=== PATIENT | male | born 1960 | race Caucasian/White ===

== ENCOUNTER 2025-02-13 10:30 | Inpatient (IN) | payer MEDICARE, SELFPAY ==
[2025-02-12] VITALS (7 sets, daily range): BP systolic 129–170; BP diastolic 83–109; BMI 33.8
[2025-02-12 12:34] LABS: % Basophils 0.5 % (0-2); % Eosinophils 0.5 % (0-6); % Immature Granulocytes 0.1 % (0-0.5); % Lymphocytes 15.2 % (20.5-51.1); % Monocytes 6.6 % (1.7-9.3); % Neutrophils 77.1 % (42.2-75.2); Absolute Lymphocytes 1.1 10^3/uL (1.2-3.4); Absolute Monocytes 0.5 10^3/uL (0.1-0.6); Absolute Neutrophils 5.7 10^3/uL (1.4-6.5); Hematocrit 45.6 % (37.0-47.0); Hemoglobin 16.4 g/dL (12.0-16.0); Mean Corpuscular Hgb 30.4 pg (27.0-31.0); Mean Corpuscular Volume 84.6 fL (81.0-99.0); Mean Platelet Volume 10.2 fL (7.4-10.4); Nucleated Red Blood Cells % 0 %; Platelet Count 141 10^3/uL (130-400); Red Blood Cell Count 5.39 10^6/uL (4.20-5.40); Red Cell Dist. Width 13.1 % (11.5-14.5); White Blood Cell Count 7.5 10^3/uL (4.8-10.8)
[2025-02-12 12:47] LABS: ALT (SGPT) 34 U/L (0-35); AST (SGOT) 41 U/L (14-36); Albumin 4.2 g/dl (3.5-5.0); Alkaline Phosphatase 73 U/L (38-126); Blood Urea Nitrogen 13 mg/dl (7-17); Calcium 9.9 mg/dl (8.4-10.2); Carbon Dioxide 27 mmol/L (22-30); Chloride 107 mmol/L (98-107); Glucose 118 mg/dl (70-99); Lipase 138 U/L (23-300); Potassium 4.3 mmol/L (3.5-5.1); Sodium 140 mmol/L (135-145); Total Bilirubin 1.5 mg/dl (0.2-1.3); eGFR > 60.00
--- NOTE | 2025-02-12 16:57 | ED.GENMED ---
History of Present Illness
General
Chief Complaint: Rectal Bleeding
Source: patient
Exam Limitations: none
Time Seen by Provider: 02/12/25 15:56
Nursing documentation reviewed up to this point in time: agreed with
History of Present Illness
History of Present Illness:
64 y/o M with h/o HTN, HLD
sleeve gastrectomy
hernia repair in the past
here with rectal bleeding
went out for pizza and beer last night
about an hour later started having nausea/dry heaves, crampy abd pain and then feeling of needing to have BM
had some diarrhea initially brown/soft
then overnight he was up to the bathroom many times with crampy pain and needing to move bowels with nausea
he ended up just transitioning to only blood; a tablespoon or so each time
and then today has had larger volume, several tablespoons
had 2 episodes in the waiting room
pain comes in waves, generally central abdomen
no vomiting
no varices history
drinks alcohol a few times a week
Past History
Past History
ED Past Medical History: HTN and Hypercholesterolemia
ED Past Surgical History: Other (sleeve gastrectomy)
Social History
Tobacco: Non-smoker
Review of Systems
Review of Systems
Allergies reviewed?: Yes
All Other Systems: Not applicable
Phy Exam
Physical Exam
Physical Exam:
GENERAL: Alert , in no apparent distress looks well
EYE: pupils equal and reactive
NECK: Supple
ENT: o/p clr, mmm.
CARDIAC: Regular rate and rhythm .
LUNGS: Clear breath sounds bilaterally, no acute respiratory distress, no wheezes/rales/rhonchi
ABDOMEN: Soft, mild diffuse tenderness, no r/g, no cvat, normal bowel sounds
Heme positive minimal pink in the vault, no hemorrhoids,
NEUROLOGICAL: Alert and oriented, no focal neuro deficits
SKIN: Warm and dry, skin intact.
MUSCULOSKELETAL: No edema, well perfused. neg billy's sign
PSYCH: Normal and appropriate interaction.
Course
Orders/Labs/Results
Orders:
Orders
02/12/25 12:15
Complete Blood Count/With Diff Urgent
Comprehensive Metabolic Panel Urgent
Lipase Urgent
02/12/25 16:58
CT Abd/Pel (IV only)-DH only Urgent
Comment:
Reason For Exam: rectal bleeding, BRBPR, abd pain; ? colitis
C DIFF [C difficile Antigen & Toxins] Urgent
MARANDA Source: Feces/Stool
Specimen Description:
Giardia/Cryptosporidium Ag Urgent
MARANDA Source: Feces/Stool
Specimen Description:
Stool Culture Urgent
MARANDA Source: Feces/Stool
Specimen Description:
0.9% Sodium Chloride 1000 ml [Nss] 1,000 ml IV BOLUS
02/12/25 17:15
Lactic Acid Urgent
02/12/25 18:47
HYDROmorphone [Dilaudid] 1 mg IV NOW STA
02/12/25 18:53
Ondansetron Injectable [Zofran] 4 mg .ROUTE .STK-MED ONE
02/12/25 18:58
Ondansetron Injectable [Zofran] 4 mg IV NOW STA
02/12/25 19:47
Lactic Acid Urgent
02/12/25 20:54
Electrocardiogram (*1) Urgent
Reason for Study: Abdominal Pain
EKG- Treatment ONCE
Abnormal Lab Results
02/12/25 02/12/25
12:15 17:15
Hgb 16.4 H g/dL
(12.0-16.0)
Absolute Lymphs (auto) 1.1 L 10^3/uL
(1.2-3.4)
Neutrophils % 77.1 H %
(42.2-75.2)
Lymphocytes % 15.2 L %
(20.5-51.1)
Glucose 118 H mg/dl
(70-99)
Lactic Acid 2.3 H mmol/L
(0.7-2.0)
Total Bilirubin 1.5 H mg/dl
(0.2-1.3)
AST 41 H U/L
(14-36)
02/12/25 12:15
02/12/25 12:15
Vital Signs
Initial and Last Documented VS:
Initial Vital Signs
Temp Pulse Resp BP Pulse Ox
36.8 C 86 16 149/103 97
02/12/25 12:06 02/12/25 12:06 02/12/25 12:06 02/12/25 12:06 02/12/25 12:06
Last Documented Vital Signs
Temp Pulse Resp BP Pulse Ox
36.6 C 64 18 170/109 95
02/12/25 18:32 02/12/25 20:09 02/12/25 15:28 02/12/25 20:09 02/12/25 20:09
MDM/Problems Addressed
MDM/Problems Addressed:
barbara jacinto
64 y/o M
htn, hld
gets colonoscopies every [address] [facility], polyps but nothing otherwise
last night ate pizza and had 2 beers, 1 hour later dry heaves, abdominal cramping and a little diarrhea
he was in and out of the bathroom all night frequently with these episodes but quickly rather than having diarrhea/stool he had straight red blood; initially a teaspoon , but then tablespoon, then a few tablespoons; largest was maybe 5 tablespoons
cramps were pretty intense at times
no thinners
afebrile, mildly hypertensive 150/100, moderate diffuse abd tenderness;
rectal exam no hemorrhoids appreciated; trace pink int he vault, heme pos; had 2 episodes in the [facility] but none in the room
lactate initially 2.3, wbc 7.5, hg 16.4, bun normal
lactate down to 0.9 after IVF
pain controlled with 1 dose dilaudid
[address] shows mild acute colitis in the prox to mid descending colon
he wasn't able to give me a sample to send
not sure if this is contributory but his GF's cat had giardia, tested pos at the vet last week
concern for ischemic colitis given all of these symptoms and findings
d/w dr. mares from GI who agrees, possible ischemic colitis
agree with obs overnight
TT to dr palomo covering colorectal surgery
pain controlled
will check EKG.
*Critical Care Note
Total Time (30-74mins, 75-104mins- exclusive of procedures): Not Applicable
ED Attending Note
-
Portions of this chart may have been created with voice recognition software.� Occasional wrong word or��sound alike� substitutions may have occurred due to the inherent limitations of voice recognition software.
Discharge Plan
Departure
Patient Disposition: Admit
Date of Disposition: 02/12/25
Time of Disposition: 20:00
Admit to: Med/Surg
Presentation/result/management discussed w/ accepting MD/DO: Hospitalist
Condition: Fair
Covid-19: Not Applicable
Discharge Problem:
Colitis, Rectal bleed
Prescriptions:
No Action
metoprolol succinate 50 mg Tablet Extended Release 24 Hr
50 mg PO DAILY
zolpidem 5 mg Tablet
5 mg PO DAILY
rosuvastatin 20 mg Tablet
20 mg PO DAILY
Enbrel 50 mg/mL (1 mL) Syringe
50 mg SC QWEEK
Rx Instructions:
Every Friday
valsartan-hydrochlorothiazide 320-25 mg Tablet
1 tab PO DAILY
Referrals:
TERESA OLIVA MD [Family Provider] -
Interventions
Interventions:
*Risk Screen - Suicide Last Done: 02/12/25 12:10
*General Assessment Last Done: 02/12/25 16:09
*Neglect/Abuse Screening Last Done: 02/12/25 12:10
*ED- Fall Risk Assessment Last Done: 02/12/25 16:09
*ED COVID-19 Vaccine History Last Done: 02/12/25 16:09
TH-Fuekrw-Klcqbepvzt Assessment Last Done: 02/12/25 16:16
ED- Cardiac Assessment Last Done: 02/12/25 16:30
ED- Pulmonary Assessment Last Done: 02/12/25 16:30
Discharge Date and Time
Print Language: GAMBIAN
[2025-02-12] MEDS: NSS 1000 IV (17:15)
[2025-02-12 17:37] LABS: Lactic Acid 2.3 mmol/L (0.7-2.0)
[2025-02-12] MEDS: ZOFRAN 4 MG IV (18:58)
[2025-02-12] MEDS: DILAUDID 1 MG IV (18:58)
[2025-02-12 20:10] LABS: Lactic Acid 0.9 mmol/L (0.7-2.0)
--- NOTE | 2025-02-12 22:39 | HPS.HSE ---
Addendum entered and electronically signed by Anand Campos DO 02/13/25 00:54:
Patient seen and examined independently. Agree with findings and plan as set forth by MARTIN Bourgeois.
Patient is a 64y M with PMH significant for hypertension and obesity s/p gastric sleeve who presents to ED complaining of abrupt onset of crampy abdominal pain with diarrhea last PM. Patient states that he went out for pizza and beer last PM.
No other members of his group developed similar symptoms. Patient states that he had crampy lower abdominal pain and multiple episodes of loose stools starting last PM. he had nausea and retching last PM - but no actual emesis. HToday his
diarrhea became bloody stool and then transitioned to blood alone. He states that his last bowel movement / passage of blood was around 1 PM today.
He is currently resting comfortably in the ED in no acute distress.
Ass:
Descending Colitis
Rheumatoid Arthritis
Benign Hypertension
Plan:
Admit for further evaluation and treatment.
Check stool studies.
Empiric abx with Zosyn for now.
GI evaluation for additional recommendations.
Supportive care with pain control, IVFs, etc.
Follow for clinical improvement.
Original Note:
Family Physician
-
Family Physician: TERESA OLIVA MD
Chief Complaint
-
bloody bowels
History of Present Illness
64 y/o M with h/o HTN, HLD,sleeve gastrectomy, hernia repair in the past presented with rectal bleeding. patient went out for pizza and beer last night about an hour later started having nausea/dry heaves,waves of abdominal pain. he had diarrhea
followed by only blood thought the night. his abdominal pain persisted. denied vomiting. his large blood BM was around 3Pm. denied fever, chills, chest pain, sob.denied dysuria or hematuria.
CT with the impression of colitis. patient received dose of Dilaudid, normal saline and Zofran in ER. admitting for further management. stool for c diff, culture, Giardia/cryposporidum sent from ER.
Medical History
Past Medical History
Past Medical History: Reports Other
Additional Past Medical History:
HTN
HLD
RA
Past Surgical History: Reports Other
Additional Past Surgical History:
sleeve gastrectomy
hernia repair
epididymal cyst removed
Social History
Tobacco: Non-smoker
Alcohol: Occasional
Drug: None
Personal: Partner
Living: With Family
Employment: Retired
Family History
Family History: Not pertinent
Allergies / Home Medications
Allergies reflects when Allergies were last updated in [facility].
Home Medications with original date entered in [facility]
Allergy/Medication List:
Allergies
Allergy/AdvReac Type Severity Reaction Status Date / Time
No Known Allergies Allergy Verified 02/12/25 16:08
Home Medications
etanercept 50 mg/mL (1 mL) subcutaneous syringe (Enbrel) 50 mg SC QWEEK 02/12/25
metoprolol succinate 50 mg tablet,extended release 24 hr 50 mg PO DAILY 02/12/25
rosuvastatin 20 mg tablet 20 mg PO DAILY 02/12/25
valsartan 320 mg-hydrochlorothiazide 25 mg tablet 1 tab PO DAILY 02/12/25
zolpidem 5 mg tablet 5 mg PO DAILY 02/12/25
Review of Systems
-
Constitutional: Reports No Symptoms
EENT: Reports No Symptoms
Respiratory: Reports No Symptoms
Cardiac: Reports No Symptoms
Abdomen/GI: Reports Abdominal Pain, Nausea and Bloody Stools
: Reports No Symptoms
Musculoskeletal: Reports No Symptoms
Skin: Reports No Symptoms
Neurological: Reports No Symptoms
Endocrine: Reports No Symptoms
Hematologic/Lymphatic: Reports No Symptoms
Psych: Reports No Symptoms
Physical Exam
Vital Signs
Vital Signs
Temp Pulse Resp BP Pulse Ox
97.9 F 64 18 145/97 95
02/12/25 18:32 02/12/25 20:09 02/12/25 15:28 02/12/25 21:00 02/12/25 21:15
Physical Exam
General: Well Developed, Well Nourished and No Apparent Distress
HEENT: NormoCephalic, Moist mucous membranes and Atraumatic
Respiratory: Clear
Cardiac: S1/S2 and Regular Rhythm; No Murmur or Rub
GI: Soft, Non Tender, Non Distended and Normal Bowel Sounds; No Organomegaly
Rectal: Deferred by Provider
Musculoskeletal: No Clubbing, No Cyanosis and No Edema
Skin: No Rash
Neuro: AO x 3 and Nonfocal/grossly intact
Psych: Calm
Laboratory Results
-
02/12/25 12:15
02/12/25 12:15
Laboratory Results
Lactic Acid 0.9 mmol/L (0.7-2.0) 02/12/25 19:47
Total Bilirubin 1.5 mg/dl (0.2-1.3) H 02/12/25 12:15
AST 41 U/L (14-36) H 02/12/25 12:15
ALT 34 U/L (0-35) 02/12/25 12:15
Alkaline Phosphatase 73 U/L (38-126) 02/12/25 12:15
Lipase 138 U/L (23-300) 02/12/25 12:15
Data Reviewed
-
CT Scan: Report Reviewed by me
Lab Data: Labs Reviewed by me
Impression/Plan
-
#abdominal pain, diarrhea, nausea likely from infectious colitis
-CT abdomen pelvis with acute uncomplicated colitis of the proximal to mid descending colon, likely of infectious/inflammatory etiology.
-NPo
-Zofran prn for n/v
-Dilaudid prn for pain
-Zosyn continued
-lactic trending down
-GI and colorectal consulted
#RA
-on Enbrel as outpatient
#HTN
-metoprolol continued with hold parameter
-valsartan continued
-hold hctz
#HLD
-statin continued
#insomnia
-Ambien continued
#DVT prophylaxis
-scd
#CODE status
-full code
[2025-02-12] MEDS: ZOSYN 50 IV (23:58)
[2025-02-13 01:02] VITALS: BP 165/85; BMI 33.2
[2025-02-13] MEDS: TYLENOL 650 MG PO (02:36)
[2025-02-13] MEDS: NSS 1000 IV (02:37)
[2025-02-13] MEDS: ZOSYN 50 IV (05:50)
[2025-02-13] MEDS: DILAUDID 0.5 MG IV (05:56)
--- NOTE | 2025-02-13 06:06 | PTCARENOTE ---
Input/output for patient is zero because patient reported having nothing to drink upon arrival and zero instances of voiding.
[2025-02-13 06:16] LABS: Hematocrit 42.8 % (39.0-52.0); Hemoglobin 14.6 g/dL (13.0-18.0); Mean Corp Hgb Conc. 34.1 g/dL (33.0-37.0); Mean Corpuscular Hgb 29.7 pg (27.0-31.0); Mean Corpuscular Volume 87.2 fL (80.0-94.0); Mean Platelet Volume 10.1 fL (7.4-10.4); Platelet Count 132 10^3/uL (130-400); Red Blood Cell Count 4.91 10^6/uL (4.70-6.10); Red Cell Dist. Width 13.2 % (11.5-14.5); White Blood Cell Count 5.3 10^3/uL (4.8-10.8)
--- NOTE | 2025-02-13 06:48 | W.PN.HOSP.TC ---
Today's Communication/Plan
-
discharge
Assessment / Plan
Assessment / Plan
Physical Exam
General: no acute distress, appears comfortable
HEENT: NormoCephalic, Moist mucous membranes and Atraumatic
Respiratory: Clear
Cardiac: S1/S2 and Regular Rhythm; No Murmur or Rub
GI: Soft, Non Tender, Non Distended and Normal Bowel Sounds; No Organomegaly
Musculoskeletal: No Clubbing, No Cyanosis and No Edema
Skin: No Rash
Neuro: AO x 3 conversant coherent
Psych: Calm
64M HTN HLD Sleeve Gastrectomy Hernia Repair p/w abd pain rectal bleeding found to have colitis likely ischemic possibly infectious
#abdominal pain, diarrhea, nausea likely from colitis
-CT abdomen pelvis with acute uncomplicated colitis of the proximal to mid descending colon, likely of infectious/inflammatory etiology.
-symptoms since improved. diet advanced to low residue, tolerating
-Zofran prn for n/v
-Dilaudid prn for pain
-Zosyn switched to Augmentin to complete total 7 day course abx
-mild lactic acidosis resolved
-GI and colorectal consults appreciated Medically stable for discharge
#RA
-on Enbrel as outpatient
#HTN
-metoprolol continued with hold parameter
-valsartan continued
-hctz ok to resume on discharge
#HLD
-statin continued
#insomnia
-Ambien continued
#DVT prophylaxis
-scd
#CODE status
-full code
Medically stable for discharge home with outpatient follow up recommendations.
Total Time Preparing Discharge ___40____ minutes including examination of the patient, summary of the hospital stay, instructions for continuing care to all relevant caregivers; and preparation of discharge records, prescriptions, and referral
forms if necessary.
Anticipated Discharge: Today
Subjective/Interval History
-
Date of Service: February 13, 2025
Seen and examined at bedside in no acute distress sitting up comfortable in bed reports feeling well. tolerating diet .
Objective Data
-
Labs:
Laboratory Results
02/13/25
04:45
WBC 5.3
Hgb 14.6
Hct 42.8
Plt Count 132
Vital Signs:
Vital Signs
Temp Pulse Resp BP Pulse Ox
97.8 F 60 20 165/85 93
02/13/25 01:02 02/13/25 01:02 02/13/25 01:02 02/13/25 01:02 02/12/25 23:45
I&O
02/11/25 02/12/25 02/13/25
06:59 06:59 06:59
Intake Total 0 / 0
Balance 0 / 0
[2025-02-13 07:56] VITALS: BP 147/90
[2025-02-13] MEDS: TOPROL XL 50 MG PO (08:32)
[2025-02-13] MEDS: CRESTOR 20 MG PO (08:32)
[2025-02-13] MEDS: DIOVAN 320 MG PO (08:32)
--- NOTE | 2025-02-13 10:03 | CON.GI ---
Consultation
-
Date/Time Consultation Requested: 02/12/25
Date/Time Consultation Performed: 02/13/25
Requesting Provider: Jeana Tafoya
Performing Provider: Sonia Ling
Reason for Consultation: Rectal bleeding, colitis
Medical History
Chief Complaint / HPI
Chief Complaint: Abdominal pain, rectal bleeding
History of Present Illness:
Enmanuel Leon is a 64 y.o. male w/ pmhx HTN, obesity s/p gastric sleeve and hx of gastric polyps who presents after episodes of severe abdominal cramping followed by multiple episodes of small volume hematochezia. He reports going out to eat,
having pizza and a beer. Soon after, he had acute onset, severe lower abdominalcrampy pain, followed by loose stool which progressed to diarrhea. He then had multiple episodes of bloody diarrhea. By the time he came to the ER, his symptoms have
subsided. He was nauseous yesterday at time of symptoms with some retching, but no vomiting. He did not have any more diarrhea or bleeding overnight, his abdominal pain has not returned. He follows with GI at [facility], last colonoscopy in June
2023, reports 2 benign polyps removed. Typically, moves his bowels regularly without issue. No family history of CRC or IBD. Denies blood thinners or regular use of NSAIDs.
WBC 7.5, Hgb 16.4 -->14.6
Lactate 2.3 --> 0.9
Tbili 1.5, AST 41, ALT 34, Alk phos 73
CT A/P showed Moderate circumferential wall thickening and inflammatory change about the proximal to mid descending colon. The bowel is without evidence of obstruction, perforation or abscess. Diverticulosis coli without evidence for diverticulitis.
Normal appendix.Hypoattenuating hepatic lesions, some of which are compatible with simple cysts and others which are too small to accurately characterize.Gallbladder contains a calcified stone.
Past Medical History
Past Medical History: HTN and Other (colon polyps, RA)
Past Surgical History: Other (gastric sleeve, hernia repair)
Social History
Tobacco: Non-Smoker
Alcohol: Occasional
Drug: None
Personal: Partner
Living: With Family
Employment: Retired
Family History
Family History: Reviewed & Not Pertinent
Allergies / Home Medications
Allergy/AdvReac Type Severity Reaction Status Date / Time
No Known Allergies Allergy Verified 02/12/25 16:08
�Medication �Instructions �Recorded
etanercept 50 mg/mL (1 mL) 50 mg SC QWEEK 02/12/25
subcutaneous syringe (Enbrel)
metoprolol succinate 50 mg 50 mg PO DAILY 02/12/25
tablet,extended release 24 hr
rosuvastatin 20 mg tablet 20 mg PO DAILY 02/12/25
valsartan 320 1 tab PO DAILY 02/12/25
mg-hydrochlorothiazide 25 mg tablet
zolpidem 5 mg tablet 5 mg PO DAILY 02/12/25
Review of Systems
-
History Source: Patient
All other systems: A 12 pt ROS was Negative except as stated above in HPI
Vital Signs
Temp Pulse Resp BP Pulse Ox
98.4 F 58 16 149/90 97
02/13/25 07:56 02/13/25 08:32 02/13/25 07:56 02/13/25 08:32 02/13/25 07:56
Physical Exam
Exam
GENERAL: In no acute distress, appears comfortable
ABDOMEN: +BS; soft, non-tender and non-distended; no rebound or guarding
Results
WBC 5.3 10^3/uL (4.8-10.8) 02/13/25 04:45
Hgb 14.6 g/dL (13.0-18.0) 02/13/25 04:45
Hct 42.8 % (39.0-52.0) 02/13/25 04:45
MCV 87.2 fL (80.0-94.0) 02/13/25 04:45
Plt Count 132 10^3/uL (130-400) 02/13/25 04:45
Absolute Neuts (auto) 5.7 10^3/uL (1.4-6.5) 02/12/25 12:15
Sodium 140 mmol/L (135-145) 02/12/25 12:15
Potassium 4.3 mmol/L (3.5-5.1) 02/12/25 12:15
Chloride 107 mmol/L (98-107) 02/12/25 12:15
Carbon Dioxide 27 mmol/L (22-30) 02/12/25 12:15
BUN 13 mg/dl (7-17) 02/12/25 12:15
Creatinine 0.7 mg/dL (0.6-1.0) 02/12/25 12:15
Calcium 9.9 mg/dl (8.4-10.2) 02/12/25 12:15
Total Bilirubin 1.5 mg/dl (0.2-1.3) H 02/12/25 12:15
AST 41 U/L (14-36) H 02/12/25 12:15
ALT 34 U/L (0-35) 02/12/25 12:15
Alkaline Phosphatase 73 U/L (38-126) 02/12/25 12:15
Lipase 138 U/L (23-300) 02/12/25 12:15
Diagnostic Image Results:
Prior GI Procedures:
EGD:
Colonoscopy:
Assessment / Plan
-
64 y.o. male w/ pmhx HTN, obesity s/p gastric sleeve and hx of gastric polyps who presents after episodes of severe abdominal cramping followed by multiple episodes of small volume hematochezia with findings of colitis on imaging. Initially had an
elevated lactate of 2.3, which normalized following IVF. He was started on zosyn.
#Rectal bleeding'
#Abdominal pain
#Colitis in proximal descending colon
#Elevated LFTs.
Overall, clinical picture c/w ischemic colitis 2/2 low flow state/MIRELLA. No stool to provide sample. Clinically, he is doing great and improving. Will advance to liquid diet, if he tolerates this, okay to advance to full diet for lunch. There is no
strong evidence supporting routine use of antibiotics for treatment of patients with colonic ischemia however it is reasonable to use antibiotics empirically given he had bleeding. I feel his case is very mild but theoretically completing a course
of antibiotics can protect against bacterial translocation occurring for loss of mucosal integrity. Recommend 7 day course.
He also had mild elevation in LFTs, he should have repeat bloodwork performed with PCP in 1 week to ensure resolution. Hepatic cysts seen on imaging, would compare to prior imaging or follow-up with MRI if no prior imaging performed, which should be
addressed with his GI as an outpatient.
No need for inpatient endoscopic evaluation given rapid clinical improvement. Recommend he follow-up with his GI doctor at [facility] to discuss evaluation/need for exam in a few weeks. Typically, unnecessary if clinically doing well.
-
-
Thank you for consultation and allowing me to participate in the patient's care. Please call the [facility] GI physician during the after hours with any questions or concerns.
--- NOTE | 2025-02-13 11:28 | CM ---
Patient seen at bedside. Patient states that he lives alone in a one story home. Patient significant other lives several blocks away with her dogs. Patient stated that he has no DME, no VN and no SNF. Patient PCP is Dr. Seay and he uses the [facility]
in [place]. Patient given OBS/[place] form and completed form to be placed in chart. Patient states that he hopes for discharge soon, home with no needs. CM will continue to follow for discharge planning needs.
Plan; home with no needs vs home with VN
[2025-02-13] MEDS: AUGMENTIN 875 MG/125 MG 1 TABLET PO (13:00)
[2025-02-13] MEDS: FLORASTOR 250 MG PO (13:00)
--- NOTE | 2025-02-13 15:01 | PTCARENOTE ---
Patient finished low res meal. Patient has no pain or discomfort, denies nausea. Patient had two previous bowel movements. MD notified, will continue to monitor.
--- NOTE | 2025-02-13 15:06 | CON.CRS ---
Consultation
-
Date/Time Consultation Performed: 02/13/25 1320
Reason for Consultation: colitis
Medical History
-
Chief Complaint: abdominal pain
History of Present Illness:
Mr Leon is a 64 yo male with a h/o gastric sleeve and HTN who presented through the ED with hematochezia and abdominal pain. He notes that on the night of 02/11 he went out for Pizza and beers and began having waves of pain with retching
thereafter. He continued having dry heaves with intermittent waves of severe abdominal pain that night into yesterday evening, he began passing multiple stools. Initially stool mixed with blood and then just several teaspoons of blood at a time.
This combined with the pain caused him to present through the ED yesterday afternoon for evaluation. He notes that nobody else with him had these symptoms after eating the same meal. He is currently pain free, tolerating dietary advancements and
notes no further hematochezia. He denies active nausea or recent vomiting. He denies fevers or chills.
Past Medical History
Past Medical History: HTN, Hypercholesterolemia and Other (RA on Enbrel, Obesity)
Past Surgical History: Bariatric (gastric sleeve), Hernia Repair and Other (colonoscopy q3 years with h/o polyps (last colonoscopy was 07/2024))
Social History
Tobacco: Non-Smoker
Alcohol: Occasional
Personal:
Living: With Family
Family History
Family History: Reviewed & Not Pertinent
Allergies / Home Medications
Allergy/AdvReac Type Severity Reaction Status Date / Time
No Known Allergies Allergy Verified 02/12/25 16:08
�Medication �Instructions �Recorded �Confirmed �Type
etanercept 50 mg/mL (1 mL) 50 mg SC QWEEK 02/12/25 02/12/25 History
subcutaneous syringe (Enbrel)
metoprolol succinate 50 mg 50 mg PO DAILY 02/12/25 02/12/25 History
tablet,extended release 24 hr
rosuvastatin 20 mg tablet 20 mg PO DAILY 02/12/25 02/12/25 History
valsartan 320 1 tab PO DAILY 02/12/25 02/12/25 History
mg-hydrochlorothiazide 25 mg tablet
zolpidem 5 mg tablet 5 mg PO DAILY 02/12/25 02/12/25 History
Review of Systems
-
History Source: Patient and Family
All other systems: Negative unless noted
A 10 point review of systems was completed, and was negative except as per HPI.
Physical Exam
Vital Signs
Temp 98.4 F 02/13/25 07:56
Pulse 58 02/13/25 08:32
Resp Rate 16 02/13/25 07:56
Blood pressure 149/90 02/13/25 08:32
SaO2 97 02/13/25 07:56
02/12/25 02/13/25 02/14/25
06:59 06:59 06:59
Actual Weight 120.429 kg
Body Mass Index (BMI) 33.2
Lab Results / Allergies
02/13/25 04:45
02/12/25 12:15
WBC 5.3 10^3/uL (4.8-10.8) 02/13/25 04:45
Hgb 14.6 g/dL (13.0-18.0) 02/13/25 04:45
Hct 42.8 % (39.0-52.0) 02/13/25 04:45
Plt Count 132 10^3/uL (130-400) 02/13/25 04:45
Abs Immat Gran (auto) 0.0 10^3/uL (0-0.05) 02/12/25 12:15
Neutrophils % 77.1 % (42.2-75.2) H 02/12/25 12:15
Allergy/AdvReac Type Severity Reaction Status Date / Time
No Known Allergies Allergy Verified 02/12/25 16:08
Physical Exam
General: Well Developed and Well Nourished
HEENT: Moist Mucous Membranes
GI: Soft, Non Tender, Non Distended and Obese
Skin: Warm and Dry
Neuro: Awake, Alert and AO x 3
Psych: Calm
Data Reviewed
-
CT Scan: Image Personally Visualized and interpreted, Report Reviewed by me, Discussed with Physician, Discussed with Patient and Discussed with Family
Labs: Labs Reviewed by me, Discussed with Physician, Discussed with Patient and Discussed with Family
Assessment / Plan
-
64 yo male who presented with 24 hours of intermittent severe abdominal pain with dry heaves and hematochezia. CT abd/pelvis with IV contrast demonstrated proximal to mid descending colon thickening consistent with colitis. Possible infectious
etiology, although likely ischemic d/t low flow state/MIRELLA. Symptoms have resolved and he is tolerating dietary advancements thus far.
--No plans for emergent surgery
--Appreciate GI eval, agree with holding on endoscopic eval given his rapid improvement
--Started on empiric abx which is reasonable
--Would benefit from outpatient GI follow up either here at or with his primary team at [facility]
Ok for discharge to home from surgical standpoint
[2025-02-13 16:02] VITALS: BP 139/87
--- NOTE | 2025-02-13 16:22 | W.DCSUMMARY ---
Discharge Summary
Discharge Data
Date of Admission: 02/13/25
Date of Discharge: 02/13/25
-
Pending Results: No
Discharge Plan
-
Patient Disposition: Home (Routine Discharge)
Discharge Diagnosis/Procedures: Colitis likely ischemic, infectious possible but less likely
Condition: Fair
Diet: Low Residue
Additional Diets: Low residue diet for 24 hours then ok to advance as tolerated
Activity: As tolerated
Driving Restrictions: As prior to admission
Bathing Restrictions: None
Blood Work: repeat CBC and CMP with primary care provider in 1 week of discharge.
Activity Restrictions/Additional Instructions:
Follow up with primary care provider in 1 week of discharge and your GI doctor in 2 weeks of discharge.
Augmentin has been prescribed for colitis. Continue through 02/18/25 then stop.
Probiotic has been prescribed to promote gut health while on antibiotics. ok to discontinue when off antibiotics
Please take medications as prescribed/recommended and follow up with primary care provider and/or other healthcare provider involved in your care for further adjustments to your medication regimen as necessary.
Referrals:
TERESA OLIVA MD [Family Provider] - in one week
Prescriptions:
New
amoxicillin-pot clavulanate 875-125 mg Tablet
1 tab PO Q12 Qty: 11 0RF
Rx Instructions:
continue antibiotic through 02/18/25 then stop
Saccharomyces boulardii 250 mg Capsule
250 mg PO BID Qty: 11 0RF
Rx Instructions:
Continue while on antibiotics. Stop when off
Continued
metoprolol succinate 50 mg Tablet Extended Release 24 Hr
50 mg PO DAILY
rosuvastatin 20 mg Tablet
20 mg PO DAILY
Enbrel 50 mg/mL (1 mL) Syringe
50 mg SC QWEEK
Rx Instructions:
Every Friday
valsartan-hydrochlorothiazide 320-25 mg Tablet
1 tab PO DAILY
Changed
zolpidem 5 mg Tablet
5 mg PO HS Qty: 0 0RF
Discharge Orders:
Discharge Patient (As Directed); Ordered 02/13/25
Ordered By: Cornel Casarez
Discharge Date and Time
Print Language: MAURITIAN
== END 2025-02-13 17:36 | disposition home or self-care (01) | DRG 392 ==
LOC: 3 WEST ACU 10:30
PROVIDERS: Emergency Medicine; Physician Assistant; Registered Nurse; ADMITTING PHYSICIAN Hospitalist; ATTENDING PHYSICIAN Internal Medicine; CONSULT PHYSICIAN Internal Medicine; CONSULT PHYSICIAN Surgery; EMERGENCY PHYSICIAN Emergency Medicine; FAMILY PHYSICIAN Internal Medicine
DX: A09 Infectious gastroenteritis and colitis, unspecified (principal); K62.5 Hemorrhage of anus and rectum; K55.9 Vascular disorder of intestine, unspecified; E87.20 Acidosis, unspecified; I10 Essential (primary) hypertension; E78.00 Pure hypercholesterolemia, unspecified; M06.9 Rheumatoid arthritis, unspecified; G47.00 Insomnia, unspecified; E66.9 Obesity, unspecified; K76.89 Other specified diseases of liver; K57.30 Diverticulosis of large intestine without perforation or abscess without bleeding; Z68.33 Body mass index [BMI] 33.0-33.9, adult; Z98.84 Bariatric surgery status; Z79.899 Other long term (current) drug therapy
CPT/HCPCS: 74177; 80053; 83605; 83690; 85025; 85027; 93005; 96361; 96365; 96375; 99285; Q9967